=== PATIENT | male | born 1945 | race Caucasian/White ===

== ENCOUNTER 2018-06-21 20:27 | Inpatient (IN) | payer OTHER ==
[~2018-06-21] VITALS: Ht 180.3 cm; Wt 119.5 kg
[~2018-06-21 20:27] MED LIST: ACTOS30 MG PO; ALTOPREV40 MG PO; FOSAMAX70 MG PO; GLUCOPHAGE850 MG PO; LISINOPRIL10 MG PO; LO-DOSE ASPIRIN81 M2 PO; MAGNESIUM400 M1 PO; METOPROLOL TART50 MG PO; MOTRIN600 MG PO; PERCOCET 5/31 TABLET PO; PRILOSEC20 MG PO; REQUIP1 MG PO; TIZANIDINE HCL2 M1 PO; VITAMIN D31000 UNIT PO
[2018-06-22 10:15] VITALS: BP 134/69
[2018-06-22 15:44] LABS: HEMATOCRIT 38.7 % (38.0-50.0); HEMOGLOBIN 13.1 G/DL (12.5-16.6); MCH 31.6 PG (29.0-34.0); MCHC 33.9 G/DL (30.0-36.0); MCV 93.5 FL (86-99); PLATELET COUNT 157 K/uL (156-360); RBC DIS.WIDTH-CV 12.6 % (11.8-14.6); RBC DIS.WIDTH-SD 42.9 % (39-53); RED BLOOD COUNT 4.14 M/uL (4.00-5.50); WHITE BLOOD COUNT 7.4 K/uL (4.1-10.2)
[2018-06-22 16:07] LABS: TROP-I INTERPRETATION NEGATIVE; TROPONIN-I < 0.01 ng/mL (0.0-0.30)
[2018-06-22 17:21] LABS: CHLORIDE 106 MEQ/L (99-109); CREATININE 1.1 MG/DL (0.6-1.3); GFR ESTIMATE (CALCULATED) > 59 mL/min/ (58.99-99999); GLUCOSE 136 mg/dL (70-99); POTASSIUM 4.2 MEQ/L (3.7-5.4); SODIUM 142 MEQ/L (136-147); UREA NITROGEN (BUN) 12 mg/dL (9-23)
[2018-06-22 17:54] VITALS: BP 116/76
[2018-06-22 20:00] VITALS: BP 95/54
[2018-06-23 01:12] VITALS: BP 100/56
[2018-06-23 05:11] LABS: HEMATOCRIT 36.7 % (38.0-50.0); HEMOGLOBIN 12.2 G/DL (12.5-16.6); MCH 31.3 PG (29.0-34.0); MCHC 33.2 G/DL (30.0-36.0); MCV 94.1 FL (86-99); PLATELET COUNT 143 K/uL (156-360); RBC DIS.WIDTH-CV 12.7 % (11.8-14.6); RBC DIS.WIDTH-SD 43.8 % (39-53); WHITE BLOOD COUNT 9.6 K/uL (4.1-10.2)
[2018-06-23 05:35] LABS: TROP-I INTERPRETATION NEGATIVE; TROPONIN-I < 0.01 ng/mL (0.0-0.30)
[2018-06-23 05:37] LABS: CHLORIDE 105 MEQ/L (99-109); CREATININE 1.3 MG/DL (0.6-1.3); GFR ESTIMATE (CALCULATED) 58 mL/min/ (58.99-99999); GLUCOSE 144 mg/dL (70-99); POTASSIUM 4.1 MEQ/L (3.7-5.4); SODIUM 141 MEQ/L (136-147); UREA NITROGEN (BUN) 15 mg/dL (9-23)
[2018-06-23 06:03] VITALS: BP 110/62
[2018-06-23 07:34] VITALS: BP 115/55
[2018-06-23 11:55] VITALS: BP 113/59
[2018-06-23 15:08] VITALS: BP 107/53
[2018-06-23 19:45] VITALS: BP 125/61
[2018-06-24 04:38] VITALS: BP 123/82
[2018-06-24 07:18] VITALS: BP 119/60
[2018-06-24 11:41] VITALS: BP 125/60
[2018-06-24 15:59] VITALS: BP 143/67
[2018-06-24 19:15] VITALS: BP 106/63
[2018-06-25 00:10] VITALS: BP 110/62
[2018-06-25 03:30] VITALS: BP 98/68
[2018-06-25 07:15] VITALS: BP 111/62
[2018-06-25] MEDS ORDERED: ENDOCET 5-3251 EACH PO (09:16)
== END 2018-06-25 11:46 | disposition home or self-care (01) | DRG 269 ==
LOC: ENRESERV 20:27 → 2SOUTH 06-22 08:48 → 4EAST 06-22 08:48 → 2SOUTH 06-22 08:56 → ENRESERV 06-22 14:20 → 2SOUTH 06-22 15:29 → 4EAST 06-22 17:44 → ENPENDDIS 06-25 → 4EAST 06-25 11:46
PROVIDERS: Surgery
PROC: 04V03DZ Restriction of Abdominal Aorta with Intraluminal Device, Percutaneous Approach (ICD-10-PCS; principal; 2018-06-22)
DX: I71.4 Abdominal aortic aneurysm, without rupture (principal); I74.5 Embolism and thrombosis of iliac artery; E11.51 Type 2 diabetes mellitus with diabetic peripheral angiopathy without gangrene; E66.9 Obesity, unspecified; I10 Essential (primary) hypertension; G47.30 Sleep apnea, unspecified; E78.5 Hyperlipidemia, unspecified; I70.212 Atherosclerosis of native arteries of extremities with intermittent claudication, left leg; Z68.36 Body mass index [BMI] 36.0-36.9, adult; Z79.84 Long term (current) use of oral hypoglycemic drugs; Z79.82 Long term (current) use of aspirin
CPT/HCPCS: 80048; 82948; 84484; 85027; 93005; C1725; C1757; C1769; C1874; C1894; J0330; J0690; J1644; J1650; J1815; J2250; J2405; J2720; J3010; J7120